=== PATIENT | female | born 1935 | race Caucasian/White ===

== ENCOUNTER 2016-11-26 22:22 | Outpatient (CLI) | payer MEDICARE, BC, OTHER | END 2016-11-26 22:23 | disposition home or self-care (01) | LOC: LAB.WCP 22:22 | PROVIDERS: ATTEND Family Medicine | DX: E03.9 Hypothyroidism, unspecified (principal) | CPT/HCPCS: 36415; 84443 ==

== ENCOUNTER 2017-01-03 14:23 | Outpatient (CLI) | payer MEDICARE, BC, OTHER ==
--- NOTE | 2017-01-03 18:07 | Ultrasound Report ---
RIGHT BREAST ULTRASOUND: 01/03/2017 CLINICAL INDICATION: Palpable abnormality right breast. TECHNIQUE: Real-time scanning was performed with field representative/health education static images obtained. Ultrasound of the palpable abnormality identified by the patient was performed. Embedded cysts are n oted, some with minimal internal debris, measuring up to 4 mm. No suspicious solid mass is identifie d. IMPRESSION: TINY EMBEDDED CYSTS. NO SONOGRAPHICALLY SUSPICIOUS FINDINGS. RECOMMENDATION: ROUTINE ANNUAL SCREENING UNLESS OTHERWISE CLINICALLY INDICATED. BIRADS CATEGORY: 2, BENIGN FINDINGS. JOB #: [id number] EXT JOB #:[id number]
--- NOTE | 2017-01-03 18:10 | Mammography Report ---
DIGITAL DIAGNOSTIC BILATERAL MAMMOGRAM: 01/03/2017 CLINICAL INDICATION: Palpable abnormality right lateral breast. TECHNIQUE: Bilateral CC and MLO views, right true lateral view. FINDINGS: A marker was placed at the site of palpable abnormality identified by the patient in the 9 o'clock position of the right breast. COMPARISON: 01/23/2016, 01/18/2015, 01/08/2014, 11/20/2012, 01/24/2012, 01/05/2011, 09/19/2007. FINDINGS: The breasts again demonstrate scattered fibroglandular densities bilaterally. There is a shifting pattern of circumscribed nodules bilaterally, compatible with waxing and waning cysts. A fe w coarse, typically benign calcifications are present. No suspicious masses, clustered microcalcific ations, or regions of architectural distortion are identified. Please also refer to right breast ult rasound of the same day. IMPRESSION: BENIGN FINDINGS. RECOMMENDATION: Routine annual screening unless otherwise clinically indicated. BI-RADS category 2, benign findings. STANDARD QUALIFYING STATEMENTS 1. This examination was reviewed with the aid of Computer-Aided Detection (CAD). 2. A negative or benign imaging report should not delay biopsy if clinically suspicious findings are present. Consider surgical consultation if warranted. More than 5% of cancers are not identified by i maging. 3. Dense breasts may obscure an underlying neoplasm. JOB #: [id number] EXT JOB #:[id number]
== END 2017-01-03 14:24 | disposition home or self-care (01) ==
LOC: DI 14:23
PROVIDERS: ATTEND Family Medicine
DX: Z12.31 Encounter for screening mammogram for malignant neoplasm of breast (principal); N62 Hypertrophy of breast; N60.01 Solitary cyst of right breast
CPT/HCPCS: 76642; G0204; 77066

== ENCOUNTER 2017-01-21 16:10 | Emergency (ER) | payer MEDICARE, BC, OTHER ==
[2017-01-21] MEDS ORDERED: ACETAMINOPHEN 1,000 MG/100 ML 100 ML IV STA (17:06)
[2017-01-21] MEDS ORDERED: HYDROmorphone 1 MG/ML SYRINGE IVP STA (17:06)
--- NOTE | 2017-01-21 17:09 | ED Physician Documentation ---
PD HPI SYNCOPE - Stated complaint Stated Complaint: HEAD PAIN,DIZZY - Chief complaint Chief Complaint: Neuro - History obtained from History obtained from: Patient, Family - History of Present Illness Witnessed: Unwitnessed (82-year-old woman who had a syncopal episode a few years ago without relevant findings. This morning she got up to urinate at 2 AM , she was sitting on the side of her bed and passed out and lean forward hitting her head on the dresser. She has some bruises over the chest wall and a persistent headache, although that is not uncommon for her, she frequently has migraines and feels like this is no different. 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 Derm: Skin cancer surgery - Present Medications Home Medications: Ambulatory Orders Medication Instructions Recorded Confirmed Aspirin [Aspir 81] 81 mg DAILY 11/25/14 11/25/14 Chlorthalidone 25 mg DAILY 11/25/14 11/25/14 Fluticasone Propionate [Flovent DAILY 11/25/14 11/25/14 Hfa] Levothyroxine [Synthroid] 88 mcg DAILY 11/25/14 11/25/14 Naproxen Sodium [Aleve] 1 cap DAILY 11/25/14 11/25/14 Omeprazole [PriLOSEC] 20 mg DAILY 11/25/14 11/25/14 Beclomethasone Dipropionate [Qvar] 2 puffs ORAL 11/26/14 11/26/14 Brimonidine 0.1% Ophth Drops 1 drop EACHEYE BID 11/26/14 11/26/14 [Alphagan P 0.1% Ophth Drops] Ergotamine Tartrate/Caffeine 1 each PO Q1HR PRN #20 tablet 01/21/17 [Cafergot Tablet] - Allergies Allergies/Adverse Reactions: Allergies Allergy/AdvReac Type Severity Reaction Status Date / Time codeine [Codeine] Allergy Intermediate Anxiety Verified 04/06/13 12:28 felodipine Allergy Unknown Verified 11/25/14 17:34 losartan potassium * Allergy Unknown Verified 11/25/14 17:34 [From Cozaar] - Social History Does the pt smoke?: No Smoking Status: Never smoker Does the pt have substance abuse?: No - Immunizations Immunizations are current?: Yes PD ED PE NORMAL - Vitals Vital signs reviewed: Yes - General General: Alert and oriented X 3, Other (Photophobic) - HEENT HEENT: PERRL, EOMI - Neck Neck: Supple, no meningeal sign, No bony TTP - Cardiac Cardiac: RRR, No murmur, Other (Some bruising over the right clavicle and upper chest wall anteriorly but without any tenderness or limited range of motion of the shoulders.) - Respiratory Respiratory: No respiratory distress, Clear bilaterally - Abdomen Abdomen: Soft, Non tender - Extremities Extremities: No edema, No calf tenderness / cord - Neuro Neuro: Alert and oriented X 3, Normal speech - Psych Psych: Normal mood, Normal affect Results - Vitals Vitals: Vital Signs - 24 hr 01/21/17 01/21/17 16:14 18:57 Temperature 36.0 C L Heart Rate 71 58 L Respiratory 20 14 Rate Blood Pressure 134/84 H 151/81 H O2 Saturation 96 98 Oxygen O2 Source Room air - EKG (time done) 1627 Rate: Rate (enter#) (63) Rhythm: NSR [place]: Normal Intervals: RBBB, LBBB QRS: LVH Ischemia: Normal ST segments Computer interpretation: Agree with computer - Labs Labs: Laboratory Tests 01/21/17 01/21/17 01/21/17 17:24 18:00 18:00 WBC 11.1 H RBC 4.45 Hgb 13.3 Hct 39.4 MCV 88.4 MCH 29.8 MCHC 33.7 RDW 13.5 Plt Count 213 MPV 9.2 Neut # 7.4 H Lymph # 2.2 [place] # 1.0 Eos # 0.4 Baso # 0.0 Absolute Nucleated RBC 0.00 Nucleated RBCs 0.0 Sodium 137 Potassium 4.0 Chloride 101 Carbon Dioxide 26 Anion Gap 10.0 BUN 24 H Creatinine 1.0 Estimated GFR (MDRD) 53 L Glucose 100 Calcium 9.1 Total Bilirubin 0.5 AST 29 ALT 21 Alkaline Phosphatase 97 Troponin I Total Protein 7.7 Albumin 3.8 Globulin 3.9 Albumin/Globulin Ratio 1.0 Lipase 29 Urine Color YELLOW Urine Clarity CLEAR Urine pH 6.0 Ur Specific [place] 1.010 Urine Protein NEGATIVE Urine Glucose (UA) NEGATIVE Urine Ketones NEGATIVE Urine Occult Blood NEGATIVE Urine Nitrite NEGATIVE Urine Bilirubin NEGATIVE Urine Urobilinogen 0.2 (NORMAL) Ur Leukocyte Esterase NEGATIVE Ur Microscopic Review NOT INDICATED Urine Culture Comments NOT INDICATED 01/21/17 18:00 WBC RBC Hgb Hct MCV MCH MCHC RDW Plt Count MPV Neut # Lymph # [place] # Eos # Baso # Absolute Nucleated RBC Nucleated RBCs Sodium Potassium Chloride Carbon Dioxide Anion Gap BUN Creatinine Estimated GFR (MDRD) Glucose Calcium Total Bilirubin AST ALT Alkaline Phosphatase Troponin I < 0.04 Total Protein Albumin Globulin Albumin/Globulin Ratio Lipase Urine Color Urine Clarity Urine pH Ur Specific [place] Urine Protein Urine Glucose (UA) Urine Ketones Urine Occult Blood Urine Nitrite Urine Bilirubin Urine Urobilinogen Ur Leukocyte Esterase Ur Microscopic Review Urine Culture Comments - Rads (name of study) CT Head and Cspine Radiology: EMP read contemporaneously (Age-related changes such as atrophy and degenerative changes without acute disease.) PD MEDICAL DECISION MAKING - ED course ED course: 82-year-old woman who presents with a syncopal episode early this morning associated with migraine headache, but possibly a head injury as well. Imaging of the head and neck was negative, then the only finding of note was a BUN of 24 which may be due to dehydration, but could be due to her throat chlorthalidone as well. She did not have much relief of her headache with IV acetaminophen and Dilaudid, she did have significant relief with Compazine and Benadryl but developed some akathisia and leg cramping after that. Given the syncopal episode she was offered an observation stay however she felt like she would be more comfortable at home and given the time course I think this is probably safe. She requested something for her headache for home use, she says she has had Cafergot in the past with good relief. Departure - Departure Disposition: 01 Home, Self Care Clinical Impression: Syncope Qualifiers: Syncope type: unspecified Qualified Code(s): R55 - Syncope and collapse Headache Qualifiers: Headache type: unspecified Headache chronicity pattern: acute headache Intractability: not intractable Qualified Code(s): R51 - Headache Head injury Qualifiers: Encounter type: initial encounter Qualified Code(s): S09.90XA - Unspecified injury of head, initial encounter Condition: Good Record reviewed to determine appropriate education?: Yes Instructions: ED Cephalgia Unspecified, ED Fainting Unkn Cause Prescriptions: Ergotamine Tartrate/Caffeine [Cafergot Tablet] 1 each PO Q1HR PRN #20 tablet PRN Reason: Headache Comments: Call your doctor to arrange a follow-up appointment, make the next available appointment. In the interim, return anytime if worse or if new symptoms develop. Your blood pressure was elevated today on check into the emergency department. This does not mean that you have hypertension, it is a common phenomenon to come to the emergency department and have elevated blood pressure. I recommend that she see your primary care physician within the week to have it rechecked when you are feeling better. Discharge Date/Time: 01/21/17 19:35
[2017-01-21 17:48] LABS: BILIRUBIN,URINE NEGATIVE (NEGATIVE)
[2017-01-21 17:50] LABS: UA CHARGE (STRIP ONLY) YES; UR CULTURE IF IND NOT INDICATED
--- NOTE | 2017-01-21 17:50 | CT Preliminary Report ---
Exam: CT Head W/O IMPRESSION: Generalized age-related cortical atrophic changes without evidence of acute intracranial abnormality. [facility] SITE ID: [id number]
--- NOTE | 2017-01-21 17:53 | CT Report ---
EXAM: CT HEAD EXAM DATE: 01/21/2017 05:34 PM. CLINICAL HISTORY: Trauma, pain. COMPARISON: None. TECHNIQUE: Multiaxial CT images were obtained from the foramen magnum to the vertex. IV contrast: Non e. Reformats: Coronal. In accordance with CT protocol optimization, one or more of the following dose reduction techniques w ere utilized for this exam: automated exposure control, adjustment of mA and/or KV based on patient s ize, or use of iterative reconstructive technique. FINDINGS: Parenchyma: No intraparenchymal hemorrhage. No evidence of mass, midline shift, or CT findings of acu te infarction. Small right lacunar infarction. Abdul-white differentiation is distinct. Extraaxial Spaces: Normal for age. No subdural or epidural collections. Ventricles: The ventricles and cortical sulci are enlarged, consistent with age-related tissue loss. Sinuses: Imaged paranasal sinuses, orbits, and mastoids show no significant abnormality. Bones: Unremarkable. Other: Diffuse chronic microangiopathic white matter changes. IMPRESSION: Generalized age-related cortical atrophic changes without evidence of acute intracranial abnormality. [facility] Referring Provider Line: [phone] SITE ID: [id number]
--- NOTE | 2017-01-21 17:54 | CT Preliminary Report ---
Exam: CT Cervical Spine W/O IMPRESSION: Degenerative and other chronic findings. No acute disease. [facility] SITE ID: [id number]
--- NOTE | 2017-01-21 17:56 | CT Report ---
EXAM: CT CERVICAL SPINE WITHOUT CONTRAST DATE: 01/21/2017 05:34 PM HISTORY: Trauma, pain. COMPARISONS: None. TECHNIQUE: Thin-section axial images were acquired of the cervical spine without contrast. Post-proce ssing: Coronal and sagittal reformats. Other: None. In accordance with CT protocol optimization, one or more of the following dose reduction techniques w ere utilized for this exam: automated exposure control, adjustment of mA and/or KV based on patient s ize, or use of iterative reconstructive technique. FINDINGS: Alignment: Normal. No scoliosis or spondylolisthesis. Bones: No fracture or bone lesion. Interspace Levels/Facets: Disk space narrowing at C5-C6 and C6-C7. Other disk spaces well-preserved. Mild generalized degenerative changes. Musculature: Grossly unremarkable. Other: The paravertebral and prevertebral soft tissues are normal. The lung apices are clear. IMPRESSION: Degenerative and other chronic findings. No acute disease. [facility] Referring Provider Line: [phone] SITE ID: [id number]
[2017-01-21] MEDS ORDERED: ACETAMINOPHEN 1,000 MG/100 ML 100 ML IV ONE (18:03)
[2017-01-21] MEDS ORDERED: HYDROmorphone 1 MG/ML SYRINGE ONE (18:04)
[2017-01-21 18:22] LABS: BILIRUBIN,TOTAL 0.5 mg/dL (0.2-1.0); CALCIUM 9.1 mg/dL (8.5-10.3); TOTAL PROTEIN 7.7 g/dL (6.7-8.2)
[2017-01-21] MEDS ORDERED: SODIUM CHLORIDE 0.9% 500 ML IV ONE (18:26)
[2017-01-21 18:30] LABS: BASOPHILS % (AUTO) 0.4 %; EOSINOPHILS # (AUTO) 0.4 10^3/uL (0.0-0.7); EOSINOPHILS % (AUTO) 3.9 %; HCT - HEMATOCRIT 39.4 % (37.0-47.0); HGB - HEMOGLOBIN 13.3 g/dL (12.0-16.0); LYMPHOCYTES # (AUTO) 2.2 10^3/uL (1.5-3.5); LYMPHOCYTES % (AUTO) 19.5 %; MEAN CORPUSCULAR HEMOGLOBIN 29.8 pg (27.0-31.0); MEAN CORPUSCULAR HGB CONC 33.7 g/dL (32.0-36.0); MEAN CORPUSCULAR VOLUME 88.4 fL (81.0-99.0); MEAN PLATELET VOLUME 9.2 fL (7.9-10.8); MONOCYTES % (AUTO) 9.4 %; NEUTROPHILS # (AUTO) 7.4 10^3/uL (1.5-6.6); NEUTROPHILS % (AUTO) 66.8 %; RED BLOOD COUNT 4.45 10^6/uL (4.20-5.40); RED CELL DISTRIBUTION WIDTH 13.5 % (12.0-15.0); UNCORRECTED WHITE BLOOD COUNT 11.1 x10^3/uL; WHITE BLOOD COUNT 11.1 x10^3/uL (4.8-10.8)
[2017-01-21] MEDS ORDERED: PROCHLORPERAZINE 10 MG/2 ML VIAL IVP STA (18:37)
[2017-01-21] MEDS ORDERED: diphenhydrAMINE INJ 50 MG/ML VIAL ONE (18:46)
[2017-01-21] MEDS ORDERED: PROCHLORPERAZINE 10 MG/2 ML VIAL ONE (18:46)
[2017-01-21] MEDS: diphenhydrAMINE INJ 50 MG/ML VIAL IVP STA ×2 (18:46→18:47)
[2017-01-21 18:58] VITALS: BP 151/81
== END 2017-01-21 19:35 | disposition home or self-care (01) ==
LOC: ED 16:10
DX: R55 Syncope and collapse (principal); R51 Headache; S09.90XA Unspecified injury of head, initial encounter; W22.09XA Striking against other stationary object, initial encounter; Y93.89 Activity, other specified; I45.2 Bifascicular block; I10 Essential (primary) hypertension; Z79.82 Long term (current) use of aspirin
CPT/HCPCS: 36415; 70450; 72125; 80053; 81003; 83690; 84484; 85025; 93005; 96374; 96375; 99284; J0131; J1170; 81001; 87086

== ENCOUNTER 2019-01-13 08:00 | Outpatient (CLI) | payer MEDICARE, BC, OTHER ==
[2019-01-13 13:43] LABS: BASOPHILS % (AUTO) 0.2 %; EOSINOPHILS # (AUTO) 0.5 10^3/uL (0.0-0.7); EOSINOPHILS % (AUTO) 5.7 %; HGB - HEMOGLOBIN 13.6 g/dL (12.0-16.0); LYMPHOCYTES # (AUTO) 2.3 10^3/uL (1.5-3.5); LYMPHOCYTES % (AUTO) 26.1 %; MEAN CORPUSCULAR HEMOGLOBIN 28.5 pg (27.0-31.0); MEAN CORPUSCULAR HGB CONC 31.2 g/dL (32.0-36.0); MEAN CORPUSCULAR VOLUME 91.2 fL (81.0-99.0); MONOCYTES # (AUTO) 0.9 10^3/uL (0.0-1.0); MONOCYTES % (AUTO) 10.5 %; NEUTROPHILS % (AUTO) 57.3 %; PLT - PLATELET COUNT 220 10^3/uL (130-450); RED BLOOD COUNT 4.78 10^6/uL (4.20-5.40); RED CELL DISTRIBUTION WIDTH 13.9 % (12.0-15.0); WHITE BLOOD COUNT 8.8 x10^3/uL (4.8-10.8)
[2019-01-13 14:21] LABS: ALBUMIN 4.1 g/dL (3.2-5.5); ALKALINE PHOSPHATASE 85 IU/L (42-121); ALT ALANINE AMINOTRANSFERASE 27 IU/L (10-60); AST ASPARTATE AMINOTRANSFERASE 33 IU/L (10-42); BILIRUBIN,TOTAL 0.7 mg/dL (0.2-1.0); BUN - BLOOD UREA NITROGEN 23 mg/dL (6-20); CARBON DIOXIDE - CO2 25 mmol/L (21-32); CHLORIDE 105 mmol/L (101-111); CHOL/HDL RATIO 3.6 (<4.4); CHOLESTEROL 208 mg/dL; CREATININE 1.1 mg/dL (0.4-1.0); GFR - MDRD 47 (>89); GLUCOSE 100 mg/dL (70-100); HDL CHOLESTEROL 57 mg/dL; LDL CHOLESTEROL,CALCULATED 115 mg/dL; SODIUM 138 mmol/L (135-145); TOTAL PROTEIN 8.4 g/dL (6.7-8.2); VLDL CHOLESTEROL 36 mg/dL
[2019-01-13 14:41] LABS: FREE T4 (FREE THYROXINE) 0.88 ng/dL (0.58-1.64)
== END 2019-01-13 23:59 | disposition home or self-care (01) ==
LOC: LAB.WCP 08:00
PROVIDERS: ATTEND Physician Assistant
DX: I10 Essential (primary) hypertension (principal); E78.5 Hyperlipidemia, unspecified; E03.9 Hypothyroidism, unspecified
CPT/HCPCS: 36415; 80053; 80061; 83721; 84439; 84443; 85025

== ENCOUNTER 2019-01-22 10:41 | Outpatient (CLI) | payer MEDICARE, BC ==
--- NOTE | 2019-01-22 14:29 | XRAY Report ---
Reason: LEFT HAND PAIN Procedure Date: 01/22/2019 Accession Number: [id number] / [id number] Procedure: WCP - Hand 3 View LT CPT Code: FULL RESULT: EXAM: LEFT HAND RADIOGRAPHY, 3 VIEWS EXAM DATE: 01/22/2019 10:41 AM. CLINICAL HISTORY: Left hand pain, chronic and nontraumatic, in an 84-year-old female. COMPARISON: None. TECHNIQUE: Frontal, lateral and oblique views. FINDINGS: Bones: Unremarkable for age. No fractures or bone lesions. Joints: Severe osteoarthritis radial aspect of the carpus with narrowing of multiple carpometacarpal joints. MCP joints diffusely narrowed with moderate to severe narrowing of the IP joints fairly diffusely as well. No joint effusions or substantial subluxation. Soft Tissues: Normal. No soft tissue swelling. 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 No acute process or posttraumatic abnormality. [facility]
--- NOTE | 2019-01-22 14:32 | XRAY Report ---
Reason: LEFT KNEE PAIN Procedure Date: 01/22/2019 Accession Number: [id number] / [id number] Procedure: WCP - Knee 3 View LT CPT Code: FULL RESULT: EXAM: LEFT KNEE RADIOGRAPHY, 3 VIEWS EXAM DATE: 01/22/2019 10:41 AM. CLINICAL HISTORY: Chronic nontraumatic left knee pain in an 84-year-old female. COMPARISON: None. TECHNIQUE: Frontal, lateral and oblique views. FINDINGS: Bones: Mild hypertrophic changes of the tibial spines and patella. Also mild hypertrophic changes of the medial and lateral aspects of the tibia. No fractures or bone lesions. Joints: Moderate narrowing of the medial joint compartment. Moderate to severe narrowing of the patellofemoral joint. No subluxation or joint effusion. Lateral joint space well maintained. Soft Tissues: Normal. No soft tissue swelling. 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 [facility]
== END 2019-01-22 23:59 | disposition home or self-care (01) ==
LOC: DI.WCP 10:41 → EDSTATUS 13:23 → DI.WCP 23:59
PROVIDERS: ATTEND Family Medicine
DX: M19.032 Primary osteoarthritis, left wrist (principal); M19.042 Primary osteoarthritis, left hand; M17.12 Unilateral primary osteoarthritis, left knee

== ENCOUNTER 2019-03-13 08:00 | Outpatient (CLI) | payer MEDICARE, BC, OTHER ==
[2019-03-13 18:39] LABS: BASOPHILS % (AUTO) 0.2 %; EOSINOPHILS # (AUTO) 0.3 10^3/uL (0.0-0.7); EOSINOPHILS % (AUTO) 3.4 %; HGB - HEMOGLOBIN 13.3 g/dL (12.0-16.0); LYMPHOCYTES # (AUTO) 1.7 10^3/uL (1.5-3.5); MEAN CORPUSCULAR HEMOGLOBIN 29.2 pg (27.0-31.0); MEAN CORPUSCULAR HGB CONC 31.4 g/dL (32.0-36.0); MONOCYTES # (AUTO) 0.7 10^3/uL (0.0-1.0); MONOCYTES % (AUTO) 9.1 %; NEUTROPHILS # (AUTO) 5.3 10^3/uL (1.5-6.6); NEUTROPHILS % (AUTO) 66.1 %; PLT - PLATELET COUNT 248 10^3/uL (130-450); RED BLOOD COUNT 4.55 10^6/uL (4.20-5.40); RED CELL DISTRIBUTION WIDTH 13.9 % (12.0-15.0)
[2019-03-13 19:02] LABS: BILIRUBIN,TOTAL 0.5 mg/dL (0.2-1.0); CALCIUM 9.1 mg/dL (8.5-10.3)
== END 2019-03-13 23:59 | disposition home or self-care (01) ==
LOC: LAB.WCP 08:00
PROVIDERS: ATTEND Family Medicine
DX: R10.31 Right lower quadrant pain (principal)
CPT/HCPCS: 36415; 80053; 85025

== ENCOUNTER 2019-03-30 15:47 | Outpatient (CLI) | payer MEDICARE, BC, OTHER ==
[2019-03-30] MEDS ORDERED: IOVERSOL 320 50 ML VIAL ONE (16:09)
[2019-03-30] MEDS ORDERED: IOVERSOL 320 100 ML VIAL IVP ONE ×2 (16:09→18:33)
[2019-03-30] MEDS ORDERED: IOVERSOL 320 50 ML VIAL PO ONE (18:33)
--- NOTE | 2019-03-31 09:23 | CT Report ---
Reason: RLQ ABDOMINAL PAIN Procedure Date: 03/30/2019 Accession Number: [id number] / [id number] Procedure: CT - Abdomen/Pelvis W CPT Code: Final Report FULL RESULT: EXAM: CT ABDOMEN AND PELVIS EXAM DATE: 03/30/2019 05:20 PM. CLINICAL HISTORY: RLQ ABDOMINAL PAIN. COMPARISONS: ABDOMEN/PELVIS W/WO 08/28/2013 9:54 AM. TECHNIQUE: Routine helical CT imaging was performed through the abdomen and pelvis. IV contrast: OPTI 320 100ML. Enteric contrast: No. Reconstructions: Coronal and sagittal. In accordance with CT protocol optimization, one or more of the following dose reduction techniques were utilized for this exam: automated exposure control, adjustment of mA and/or KV based on patient size, or use of iterative reconstructive technique. FINDINGS: Lung Bases: Linear changes are noted in the lung bases that most likely represent atelectasis or scarring. There is a moderate hiatal hernia. Solid organs: Calcifications are seen throughout the liver consistent with old granulomatous disease. There is a low-density lesion again noted within the right lobe. It measures 9 mm (image 25 of series 3). This most likely represents a cyst or hemangioma. Calcifications are seen within the spleen consistent with old granulomatous disease. The kidneys are without evidence of mass or hydronephrosis. Peritoneal Cavity/Bowel: The appendix is normal in appearance. There are no dilated loops of bowel to suggest the presence of an obstruction. There is diverticulosis of the sigmoid colon without evidence of diverticulitis. Pelvic Organs: There is no periaortic or pelvic lymphadenopathy. Vasculature: There is atherosclerosis of the aorta and iliac arteries. There is no evidence of an abdominal aortic aneurysm. Bones: Degenerative changes of the lumbar spine are noted. IMPRESSION: Normal CT of the appendix. Diverticulosis of the sigmoid colon without evidence of diverticulitis. Atherosclerosis of the aorta and iliac arteries. Moderate hiatal hernia. [facility]
== END 2019-03-30 15:48 | disposition home or self-care (01) ==
LOC: DI 15:47
PROVIDERS: ATTEND Family Medicine
DX: R10.31 Right lower quadrant pain (principal); K57.30 Diverticulosis of large intestine without perforation or abscess without bleeding; K44.9 Diaphragmatic hernia without obstruction or gangrene; I70.0 Atherosclerosis of aorta
CPT/HCPCS: 74177; Q9967

== ENCOUNTER 2019-07-02 12:19 | Outpatient (CLI) | payer MEDICARE, BC ==
--- NOTE | 2019-07-02 21:49 | XRAY Report ---
Reason: NECK PAIN Procedure Date: 07/02/2019 Accession Number: [id number] / [id number] Procedure: WCP - Cervical Spine 2 View CPT Code: Final Report FULL RESULT: EXAM: CERVICAL SPINE RADIOGRAPHY. EXAM DATE: 07/02/2019 12:19 PM. CLINICAL HISTORY: Neck pain. Chronic neck pain, worsening, severe headaches, dizziness. COMPARISONS: None. TECHNIQUE: 2 views. FINDINGS: Alignment: No subluxation is demonstrated. Bones: The cervical vertebral bodies and posterior elements are well visualized from the skull base through C7-T1. No fractures or bone lesions. Disks: Multilevel disk space height loss as well as endplate osteophytosis. Facets: Multilevel facet arthropathy. Soft Tissues: Moderate calcific aortic atherosclerotic. Visualized lung apices are clear. No pathologic prevertebral soft tissue thickening. IMPRESSION: 1. No definite acute bone abnormality. 2. Moderate multilevel degenerative change. [facility]
== END 2019-07-02 12:20 | disposition home or self-care (01) ==
LOC: DI.WCP 12:19
PROVIDERS: ATTEND Family Medicine
DX: M47.812 Spondylosis without myelopathy or radiculopathy, cervical region (principal)
CPT/HCPCS: 72040

== ENCOUNTER 2019-07-24 18:50 | Emergency (ER) | payer MEDICARE, BC, OTHER ==
[2019-07-24 19:49] LABS: BASOPHILS % (AUTO) 0.2 %; EOSINOPHILS # (AUTO) 0.2 10^3/uL (0.0-0.7); HGB - HEMOGLOBIN 13.5 g/dL (12.0-16.0); LYMPHOCYTES # (AUTO) 1.7 10^3/uL (1.5-3.5); LYMPHOCYTES % (AUTO) 15.2 %; MEAN CORPUSCULAR HGB CONC 33.2 g/dL (32.0-36.0); MEAN CORPUSCULAR VOLUME 90.4 fL (81.0-99.0); MEAN PLATELET VOLUME 9.9 fL (7.9-10.8); MONOCYTES # (AUTO) 1.2 10^3/uL (0.0-1.0); NEUTROPHILS # (AUTO) 7.8 10^3/uL (1.5-6.6); NEUTROPHILS % (AUTO) 71.2 %; PLT - PLATELET COUNT 231 10^3/uL (130-450); RED CELL DISTRIBUTION WIDTH 13.3 % (12.0-15.0); WHITE BLOOD COUNT 10.9 x10^3/uL (4.8-10.8)
[2019-07-24 20:06] LABS: CALCIUM 8.6 mg/dL (8.5-10.3); CREATININE 1.1 mg/dL (0.4-1.0); TOTAL PROTEIN 7.9 g/dL (6.7-8.2)
[2019-07-24] MEDS ORDERED: MORPHINE 2 MG/ML CARPUJECT IVP STA (20:07)
[2019-07-24] MEDS ORDERED: ONDANSETRON 4 MG/2 ML VIAL IVP STA (20:07)
--- NOTE | 2019-07-24 20:11 | ED Physician Documentation ---
PD HPI ABD PAIN - Stated complaint Stated Complaint: RT SIDE PX - Chief complaint Chief Complaint: Abd Pain - History obtained from History obtained from: Patient - History of Present Illness Timing - onset: Chronic (84-year-old woman presents with right upper quadrant pain radiating into the right ribs. This is not a new phenomenon for her. Is been going on on and off for years. It looks like she has had extensive work- ups for this, including CTs and ultrasounds without pertinent positive findings. She was unclear if she still had her gallbladder out or not, but review of prior imaging, specifically CT done last year and abdominal MRI prior to that were notable for having had a cholecystectomy. Pain is worse after eating. She feels like she is swollen on the right side upper abdomen. 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 Derm: Skin cancer surgery - Present Medications Home Medications: Ambulatory Orders Medication Instructions Recorded Confirmed Aspirin [Aspir 81] 81 mg DAILY 11/25/14 11/25/14 Chlorthalidone 25 mg DAILY 11/25/14 11/25/14 Fluticasone Propionate [Flovent DAILY 11/25/14 11/25/14 Hfa] Levothyroxine [Synthroid] 88 mcg DAILY 11/25/14 11/25/14 Naproxen Sodium [Aleve] 1 cap DAILY 11/25/14 11/25/14 Omeprazole [PriLOSEC] 20 mg DAILY 11/25/14 11/25/14 Beclomethasone Dipropionate [Qvar] 2 puffs ORAL 11/26/14 11/26/14 Brimonidine 0.1% Ophth Drops 1 drop EACHEYE BID 11/26/14 11/26/14 [Alphagan P 0.1% Ophth Drops] Ergotamine Tartrate/Caffeine 1 each PO Q1HR PRN #20 tablet 01/21/17 [Cafergot Tablet] traMADol [Ultram] 50 mg PO Q4-6H PRN #20 tablet 07/24/19 Amox/Clav 875/125 [Augmentin] 1 each PO Q12H #20 tablet 07/25/19 - Allergies Allergies/Adverse Reactions: Allergies Allergy/AdvReac Type Severity Reaction Status Date / Time codeine [Codeine] Allergy Intermediate Anxiety Verified 04/06/13 12:28 felodipine Allergy Unknown Verified 11/25/14 17:34 losartan potassium * Allergy Unknown Verified 11/25/14 17:34 [From Cozaar] - Social History Does the pt smoke?: No Smoking Status: Never smoker Does the pt drink ETOH?: Yes Does the pt have substance abuse?: No - Immunizations Immunizations are current?: Yes PD ED PE NORMAL - Vitals Vital signs reviewed: Yes - General General: Alert and oriented X 3, No acute distress - HEENT HEENT: PERRL, EOMI - Neck Neck: Supple, no meningeal sign, No bony TTP - Cardiac Cardiac: RRR, No murmur - Respiratory Respiratory: No respiratory distress, Clear bilaterally - Abdomen Abdomen: Other (Minimal right upper quadrant tenderness with equivocal Shafer sign. She has old well-healed laparoscopic incision. No and surgical signs.) - Back Back: No CVA TTP, No spinal TTP - Derm Derm: Normal color, Warm and dry - Extremities Extremities: No edema, No calf tenderness / cord - Neuro Neuro: Alert and oriented X 3, Normal speech Results - Vitals Vitals: Vital Signs - 24 hr 07/24/19 07/24/19 07/24/19 18:59 19:04 21:00 Temperature 36.6 C Heart Rate 78 87 63 Respiratory 16 20 16 Rate Blood Pressure 147/81 H 155/77 H 155/67 H O2 Saturation 99 99 99 07/24/19 23:15 Temperature Heart Rate 88 Respiratory 18 Rate Blood Pressure 149/89 H O2 Saturation 98 Oxygen O2 Source Room air - Labs Labs: Laboratory Tests 07/24/19 07/24/19 07/24/19 19:40 19:40 21:50 WBC 10.9 H RBC 4.50 Hgb 13.5 Hct 40.7 MCV 90.4 MCH 30.0 MCHC 33.2 RDW 13.3 Plt Count 231 MPV 9.9 Neut # (Auto) 7.8 H Lymph # (Auto) 1.7 [place] # (Auto) 1.2 H Eos # (Auto) 0.2 Baso # (Auto) 0.0 Absolute Nucleated RBC 0.00 Nucleated RBC % 0.0 Sodium 135 Potassium 3.9 Chloride 98 L Carbon Dioxide 26 Anion Gap 11.0 BUN 24 H Creatinine 1.1 H Estimated GFR (MDRD) 47 L Glucose 115 H Calcium 8.6 Total Bilirubin 1.0 AST 30 ALT 23 Alkaline Phosphatase 82 Total Protein 7.9 Albumin 4.0 Globulin 3.9 Albumin/Globulin Ratio 1.0 Lipase 30 Urine Color YELLOW Urine Clarity CLEAR Urine pH 7.0 Ur Specific [place] 1.010 Urine Protein NEGATIVE Urine Glucose (UA) NEGATIVE Urine Ketones NEGATIVE Urine Occult Blood NEGATIVE Urine Nitrite NEGATIVE Urine Bilirubin NEGATIVE Urine Urobilinogen 0.2 (NORMAL) Ur Leukocyte Esterase NEGATIVE Ur Microscopic Review NOT INDICATED Urine Culture Comments NOT INDICATED PD MEDICAL DECISION MAKING - ED course ED course: It seems like a biliary issue, that said she had a remote cholecystectomy although she does not remember it but prior imaging confirms that. Reviewed the chart shows that this is probably a chronic recurrent issue that is never really been explained. Patient feels like although to his right upper quadrant pain it is probably an exacerbation of her pelvic issues, it sounds like she has pretty significant pelvic organ prolapse but has good follow-up for that. CT was done. My "wet" read of it is negative. They wanted to be discharged given the wait and that is not unreasonable. I will call them in the morning at [phone] if there are pertinent positive findings. I called her in the morning and we discussed CT findings. Her pain is atypical for diverticulitis, but given the findings she was called in an rx for augmentin to [facility] pharmacy per her request and her son will pick it up for her. Departure - Departure Disposition: 01 Home, Self Care Clinical Impression: Diverticulitis of gastrointestinal tract Abdominal pain Qualifiers: Abdominal location: generalized Qualified Code(s): R10.84 - Generalized abdominal pain Condition: Good Record reviewed to determine appropriate education?: Yes Instructions: ED Abdominal Pain Unkn Cause Prescriptions: Amox/Clav 875/125 [Augmentin] 1 each PO Q12H #20 tablet traMADol [Ultram] 50 mg PO Q4-6H PRN #20 tablet PRN Reason: Pain Comments: You were seen tonight for an exacerbation of chronic unexplained abdominal pain. It seems like your gallbladder but you do not have one. Might be related to all the problems you have had with your pelvic organs, but she has good follow- up for that after multiple surgeries. He felt better after little pain medicine. Your lab work was basically normal as was urinalysis. Final results on the CT are pending and I will call you tomorrow morning if there is any significant abnormality, but I do not see any major abnormalities on my review of it. Return if worse. Follow-up with your urologist and primary care physicians, both next available appointment. Discharge Date/Time: 07/24/19 23:29
[2019-07-24] MEDS ORDERED: IOVERSOL 320 100 ML VIAL IVP ONE ×2 (20:59→23:13)
[2019-07-24 21:59] LABS: BILIRUBIN,URINE NEGATIVE (NEGATIVE); GLUCOSE, URINE (UA) NEGATIVE (NEGATIVE); KETONES,URINE (UA) NEGATIVE (NEGATIVE); LEUKOCYTE ESTERASE, URINE NEGATIVE (NEGATIVE); NITRITE,URINE NEGATIVE (NEGATIVE); OCCULT BLOOD,URINE NEGATIVE (NEGATIVE); PROTEIN,URINE NEGATIVE (NEGATIVE); UROBILINOGEN,URINE 0.2 (NORMAL) E.U./dL (NORMAL)
[2019-07-24 22:01] LABS: CLARITY,URINE CLEAR (CLEAR)
[2019-07-24 23:29] VITALS: BP 149/89
--- NOTE | 2019-07-24 23:38 | CT Report ---
Reason: RUQ pain Procedure Date: 07/24/2019 Accession Number: [id number] / [id number] Procedure: CT - Abdomen/Pelvis W CPT Code: Final Report FULL RESULT: EXAM: CT ABDOMEN AND PELVIS EXAM DATE: 07/24/2019 10:54 PM. CLINICAL HISTORY: Persistent RUQ pain, now with lower abdomen pain. COMPARISONS: ABDOMEN/PELVIS W/ 03/30/2019 4:58 PM. TECHNIQUE: Routine helical CT imaging was performed through the abdomen and pelvis. IV contrast: 100 cc of OPTIRAY 320. Enteric contrast: No. Reconstructions: Coronal and sagittal. In accordance with CT protocol optimization, one or more of the following dose reduction techniques were utilized for this exam: automated exposure control, adjustment of mA and/or KV based on patient size, or use of iterative reconstructive technique. FINDINGS: Lung Bases: Small hiatal hernia. Liver: Diffuse low density. Stable subcentimeter lateral right lobe low density compatible with a small cyst, otherwise unremarkable. Gallbladder/Bile Ducts: Cholecystectomy. No dilated ducts. Spleen: Normal. Pancreas: Normal. Adrenal Glands: Normal. Kidneys: Normal. No masses or hydronephrosis. Peritoneal Cavity/Bowel: Diverticulosis. Wall thickening in the lower sigmoid colon with adjacent lateral left pelvic fat stranding. No free fluid, free air or adenopathy. No masses. The appendix is well visualized and normal. Pelvic Organs: Hysterectomy. Unremarkable bladder. Vasculature: No aneurysms or other significant abnormality. Bones: No significant abnormality. Other: None. IMPRESSION: 1. Uncomplicated lower sigmoid colon diverticulitis. 2. Small hiatal hernia. 3. Hepatic steatosis. 4. Cholecystectomy and hysterectomy noted. RADIA
== END 2019-07-24 23:29 | disposition home or self-care (01) ==
LOC: ED 18:50
DX: K57.32 Diverticulitis of large intestine without perforation or abscess without bleeding (principal); K44.9 Diaphragmatic hernia without obstruction or gangrene; K21.9 Gastro-esophageal reflux disease without esophagitis; K76.0 Fatty (change of) liver, not elsewhere classified; Z90.49 Acquired absence of other specified parts of digestive tract; M32.9 Systemic lupus erythematosus, unspecified; I10 Essential (primary) hypertension; Z79.82 Long term (current) use of aspirin
CPT/HCPCS: 36415; 74177; 80053; 81003; 83690; 85025; 96374; 99284; 99285; Q9967; 81001; 87086

== ENCOUNTER 2019-09-12 23:53 | Emergency (ER) | payer MEDICARE, BC, OTHER ==
--- NOTE | 2019-09-13 01:13 | ED Physician Documentation ---
PD HPI HEADACHE - Stated complaint Stated Complaint: EYE PX/BLURRY VISION - Chief complaint Chief Complaint: Heent - History obtained from History obtained from: Patient - History of Present Illness Timing - details: Intermittant Worst headache ever?: No: Worst headache ever? Associated symptoms: Eye pain, Vision changes. No: Fever, Vomiting, Weakness, Numbness Improved by: Nothing Worsened by: Other (no exacerbating factors) Recently seen: Other (recent evaluation by dispensing audiologist) - Additional information Additional information: patient's chief complaint is that a worm came out of her eye tonight. She says she used the bathroom and then bent forward to flush the toilet and as she did so, she says a worm came out of her eye and fell into the toilet just as she was flushing the toilet. she says a similar, larger worm came out of her left nare approximately 12 days ago. patient says she initially felt that she had a worm under the skin of her forehead and she believes it migrated to her left eye. she was recently evaluated by her dispensing audiologist, no apparent diagnosis at that time. she has had intermittent headaches for weeks and had MRI earlier this month at [facility]. She says it was of her head; son says it was "from her chest up". Per the son, no significant abnormality was found. Patient also says she has had intermittent left-sided blurry vision. no recent travel out of the country Review of Systems Constitutional: denies: Fever Eyes: reports: Decreased vision Neurologic: reports: Headache. 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 Derm: Skin cancer surgery - Present Medications Home Medications: Ambulatory Orders Medication Instructions Recorded Confirmed Aspirin [Aspir 81] 81 mg DAILY 11/25/14 11/25/14 Chlorthalidone 25 mg DAILY 11/25/14 11/25/14 Fluticasone Propionate [Flovent DAILY 11/25/14 11/25/14 Hfa] Levothyroxine [Synthroid] 88 mcg DAILY 11/25/14 11/25/14 Naproxen Sodium [Aleve] 1 cap DAILY 11/25/14 11/25/14 Omeprazole [PriLOSEC] 20 mg DAILY 11/25/14 11/25/14 Beclomethasone Dipropionate [Qvar] 2 puffs ORAL 11/26/14 11/26/14 Brimonidine 0.1% Ophth Drops 1 drop EACHEYE BID 11/26/14 11/26/14 [Alphagan P 0.1% Ophth Drops] Ergotamine Tartrate/Caffeine 1 each PO Q1HR PRN #20 tablet 01/21/17 [Cafergot Tablet] traMADol [Ultram] 50 mg PO Q4-6H PRN #20 tablet 07/24/19 Amox/Clav 875/125 [Augmentin] 1 each PO Q12H #20 tablet 07/25/19 - Allergies Allergies/Adverse Reactions: Allergies Allergy/AdvReac Type Severity Reaction Status Date / Time codeine [Codeine] Allergy Intermediate Anxiety Verified 04/06/13 12:28 felodipine Allergy Unknown Verified 11/25/14 17:34 losartan potassium * Allergy Unknown Verified 11/25/14 17:34 [From Cozaar] - Social History Does the pt smoke?: No Smoking Status: Never smoker Does the pt drink ETOH?: Yes Does the pt have substance abuse?: No - Immunizations Immunizations are current?: Yes - POLST Patient has POLST: No PD ED PE NORMAL - Vitals Vital signs reviewed: Yes - General General: Alert and oriented X 3, No acute distress (except for appearing anxious at times), Well developed/nourished - HEENT HEENT: PERRL, EOMI - Neuro Neuro: Alert and oriented X 3, imposer 2-12 intact, No motor deficit, No sensory deficit, Normal speech Eye Opening: Spontaneous Motor: Obeys Commands Verbal: Oriented GCS Score: 15 PD ED PE EXPANDED - HEENT HEENT: PERRL, Other (no visible abnormality, FB (including any living/organic material) in either nare (using otoscope)) Results - Vitals Vitals: Vital Signs - 24 hr 09/13/19 09/13/19 09/13/19 00:00 00:45 02:16 Temperature 36 C L Heart Rate 92 95 86 Respiratory 18 18 18 Rate Blood Pressure 161/99 H 155/77 H 140/82 H O2 Saturation 96 95 98 Oxygen O2 Source Room air PD MEDICAL DECISION MAKING - ED course Complexity details: considered differential, d/w patient, d/w family ED course: no focal or lateralizing deficits on exam. she is in NAD except appears to be anxious at times. the patient reports a history of a worm coming out of her left nare earlier this month, followed by a worm coming out of her left eye. she says the worm that came out of her nose had "brown eyes", and that she had collected it in a tissue. She says she brought it to the [facility] lab but the sample was "contaminated" (per patient; her son says the lab "threw it out"), and thus could not be tested (it isn't clear to me who ordered the test nor what test was desired). The patient says she had an MRI earlier this month at ; by her description, it sounds like this was part of a w/u for her headaches. patient is distraught when I explain that there are no emergent tests nor treatments indicated at this time. She is not open to suggestions that I make of any possibility except for some type of parasitic worm. Departure - Departure Disposition: 01 Home, Self Care Clinical Impression: Headache Qualifiers: Headache type: unspecified Headache chronicity pattern: unspecified pattern Intractability: not intractable Qualified Code(s): R51 - Headache Condition: Good Instructions: ED Symptoms No Dx Discharge Date/Time: 09/13/19 02:16
[2019-09-13 02:17] VITALS: BP 140/82
== END 2019-09-13 02:16 | disposition home or self-care (01) ==
LOC: ED 23:53
DX: R51 Headache (principal); I10 Essential (primary) hypertension
CPT/HCPCS: 99281; 99283

== ENCOUNTER 2019-09-14 08:00 | Outpatient (CLI) | payer MEDICARE, BC, OTHER ==
[2019-09-14 17:09] LABS: BASOPHILS % (AUTO) 0.3 %; EOSINOPHILS # (AUTO) 0.4 10^3/uL (0.0-0.7); EOSINOPHILS % (AUTO) 4.3 %; HGB - HEMOGLOBIN 14.1 g/dL (12.0-16.0); LYMPHOCYTES % (AUTO) 22.7 %; MEAN CORPUSCULAR HEMOGLOBIN 30.1 pg (27.0-31.0); MEAN CORPUSCULAR HGB CONC 32.6 g/dL (32.0-36.0); MEAN CORPUSCULAR VOLUME 92.3 fL (81.0-99.0); MEAN PLATELET VOLUME 11.1 fL (7.9-10.8); MONOCYTES # (AUTO) 0.9 10^3/uL (0.0-1.0); NEUTROPHILS # (AUTO) 5.6 10^3/uL (1.5-6.6); NEUTROPHILS % (AUTO) 62.4 %; PLT - PLATELET COUNT 235 10^3/uL (130-450); RED BLOOD COUNT 4.69 10^6/uL (4.20-5.40); RED CELL DISTRIBUTION WIDTH 13.8 % (12.0-15.0); WHITE BLOOD COUNT 8.9 x10^3/uL (4.8-10.8)
[2019-09-14 17:32] LABS: ALKALINE PHOSPHATASE 100 IU/L (42-121); ALT ALANINE AMINOTRANSFERASE 23 IU/L (10-60); AST ASPARTATE AMINOTRANSFERASE 32 IU/L (10-42); BILIRUBIN,TOTAL 0.6 mg/dL (0.2-1.0); BUN - BLOOD UREA NITROGEN 37 mg/dL (6-20); CALCIUM 9.2 mg/dL (8.5-10.3); CARBON DIOXIDE - CO2 28 mmol/L (21-32); CHLORIDE 99 mmol/L (101-111); GLUCOSE 98 mg/dL (70-100); SODIUM 136 mmol/L (135-145); TOTAL PROTEIN 7.9 g/dL (6.7-8.2)
[2019-09-14 17:43] LABS: THYROID STIMULATING HORMONE 1.79 uIU/mL (0.34-5.60)
[2019-09-14 17:45] LABS: FREE T3 2.77 pg/mL (2.5-3.9); FREE T4 (FREE THYROXINE) 1.08 ng/dL (0.58-1.64)
[2019-09-14 17:52] LABS: CRP - C-REACTIVE PROTEIN < 1.0 mg/dL (0-1.0)
== END 2019-09-14 23:59 | disposition home or self-care (01) ==
LOC: LAB.WCP 08:00
PROVIDERS: ATTEND Family Medicine
DX: B89 Unspecified parasitic disease (principal); H53.9 Unspecified visual disturbance; G43.909 Migraine, unspecified, not intractable, without status migrainosus
CPT/HCPCS: 36415; 80053; 81599; 84439; 84443; 84481; 85025; 85651; 86140

== ENCOUNTER 2019-09-17 08:00 | Outpatient (CLI) | payer MEDICARE, BC, OTHER | END 2019-09-17 23:59 | disposition home or self-care (01) | LOC: LAB.WCP 08:00 | PROVIDERS: ATTEND Family Medicine | DX: B89 Unspecified parasitic disease (principal); H53.9 Unspecified visual disturbance; G43.909 Migraine, unspecified, not intractable, without status migrainosus | CPT/HCPCS: 36415; 80048; 81599; 82175; 83655; 83825 ==

== ENCOUNTER 2020-01-29 07:00 | Outpatient (CLI) | payer MEDICARE, BC, OTHER | END 2020-01-29 23:59 | disposition home or self-care (01) | LOC: LAB.R 07:00 | PROVIDERS: ATTEND Family Medicine | DX: R30.0 Dysuria (principal) | CPT/HCPCS: 87086 ==

== ENCOUNTER 2021-09-09 20:45 | Outpatient (CLI) | payer MEDICARE, BC, OTHER | END 2021-09-09 20:46 | disposition E | LOC: EMS 20:45 ==